=== PATIENT | male | born 1950 | race African-American/Black ===

== ENCOUNTER 2025-05-04 11:42 | Emergency (ER) | payer MEDICARE, SELFPAY ==
[2025-05-04 11:44] VITALS: BP 167/62
--- NOTE | 2025-05-04 12:50 | ED.GENMED ---
ED Provider Triage
<Jarred Alcaraz MD, Resident - Last Filed: 05/04/25 14:18>
-
Patient seen by provider in Triage?: Seen in Triage
History of Present Illness
<Jarred Alcaraz MD, Resident - Last Filed: 05/04/25 14:18>
General
Chief Complaint: Fall
Source: patient
Exam Limitations: none
Time Seen by Provider: 05/04/25 12:10
History of Present Illness
History of Present Illness:
Patient is a 75-year-old male with a significant medical history for dialysis from [place] who is here in [facility]. Around 2 to 3 hours ago, he tripped on a tree root near his camping site and fell on his left side. Associated
with moderate to severe pain of his left wrist and left forearm. There is weakness and movement of his left forearm. No numbness no tingling of the affected extremities. No active bleeding. No headache, visual changes fever, chills, nausea,
vomiting, diarrhea, abdominal pain, focal neurological deficits. He is not on any blood thinners, he has had 2 kidney transplants.
Past History
<Jarred Alcaraz MD, Resident - Last Filed: 05/04/25 14:18>
Past History
ED Past Medical History: Other (HTN, Dialysis)
ED Past Surgical History: Other (Kidney transplant bilateral )
Social History
Tobacco: Other (Marijuana)
Alcohol: None
Drug: None
Personal:
Employment: Retired
Review of Systems
<Jarred Alcaraz MD, Resident - Last Filed: 05/04/25 14:18>
Review of Systems
Allergies reviewed?: Yes
All Other Systems: ROS reviewed and negative except as documented in HPI and ROS
Phy Exam
<Jarred Alcaraz MD, Resident - Last Filed: 05/04/25 14:18>
General Physical Exam
General Presentation: well appearing
General Skin: warm
General Habitus: normal
General Mental: alert
Cardiovascular Exam
Cardiovascular Exam: regular rate/rhythm and no edema
Pulmonary Exam
Pulmonary Exam: lungs clear and no respiratory distress
Neurological Exam
Neurological Exam: alert and oriented x3
Musculoskeletal Exam
Musculoskeletal Exam: other (swelling of the left dorsal surface of hand, the medial and lateral aspect of wrist, and the left medial region of elbow. No active bleeding or lacerations. Decreased ROM all planes of left elbow w/ point tenderness of
the medial epicondyle. ROM normal left wrist. sensation intact b/l. pulses 2+ )
Course
<Jarred Alcaraz MD, Resident - Last Filed: 05/04/25 14:18>
Orders/Labs/Results
Orders:
Orders
05/04/25 12:44
CR Forearm - Left 2 View Urgent
Comment:
Reason For Exam: severe pain
CR Hand - Left Min 3 Views Urgent
Comment:
Reason For Exam: severe pain
05/04/25 12:54
Acetaminophen [Tylenol] 650 mg PO NOW STA
05/04/25 14:10
Sling Left-Treatment ONCE
Comment: volar left sling
Splints/Slings/Crut- Treatment ONCE
Sling to: Left Arm
Location: Left
Type of Splint: Volar
Vital Signs
Initial and Last Documented VS:
Initial Vital Signs
Temp Pulse Resp BP Pulse Ox
97.6 F 58 18 167/62 95
05/04/25 11:44 05/04/25 11:44 05/04/25 11:44 05/04/25 11:44 05/04/25 11:44
Last Documented Vital Signs
Temp Pulse Resp BP Pulse Ox
97.6 F 58 18 167/62 95
05/04/25 11:44 05/04/25 11:44 05/04/25 11:44 05/04/25 11:44 05/04/25 12:52
<Steven Bradley MD - Last Filed: 05/04/25 14:08>
Orders/Labs/Results
Orders:
Orders
05/04/25 12:44
CR Forearm - Left 2 View Urgent
Comment:
Reason For Exam: severe pain
CR Hand - Left Min 3 Views Urgent
Comment:
Reason For Exam: severe pain
05/04/25 12:54
Acetaminophen [Tylenol] 650 mg PO NOW STA
05/04/25 14:10
Sling Left-Treatment ONCE
Comment: volar left sling
Splints/Slings/Crut- Treatment ONCE
Sling to: Left Arm
Location: Left
Type of Splint: Volar
Vital Signs
Initial and Last Documented VS:
Initial Vital Signs
Temp Pulse Resp BP Pulse Ox
97.6 F 58 18 167/62 95
05/04/25 11:44 05/04/25 11:44 05/04/25 11:44 05/04/25 11:44 05/04/25 11:44
Last Documented Vital Signs
Temp Pulse Resp BP Pulse Ox
97.6 F 58 18 167/62 95
05/04/25 11:44 05/04/25 11:44 05/04/25 11:44 05/04/25 11:44 05/04/25 12:52
<Jarred Alcaraz MD, Resident - Last Filed: 05/04/25 14:18>
MDM/Problems Addressed
Differential Diagnosis Includes:
wrist fracture, wrist soft tissue swelling, left forearm soft tissue swelling, medial epicondyle fracture, lateral epicondyle fracture
MDM/Problems Addressed:
- Xrays of the left wrist and left forearm ordered show fracture of the left distal radius and left styloid ulnar process
- Given tylenol 650 for pain once
Discharge patient with splint, volar sling, and f/u ortho within 5 days. Advised patient to buy OTC pain medication like tylenol as his pharmacy is in [place].
<Jarred Alcaraz MD, Resident - Last Filed: 05/04/25 14:18>
*Pulse Oximetry
SaO2: 95
Oxygen Mode of Delivery: Room air
Patient hypoxic: no
*Critical Care Note
Total Time (30-74mins, 75-104mins- exclusive of procedures): Not Applicable
ED Attending Note
<Jarred Alcaraz MD, Resident - Last Filed: 05/04/25 14:18>
-
Portions of this chart may have been created with voice recognition software.� Occasional wrong word or��sound alike� substitutions may have occurred due to the inherent limitations of voice recognition software.
<Steven Bradley MD - Last Filed: 05/04/25 14:08>
ED Attending Note
Patient seen and examined by attending physician: Yes
I performed a history and physical exam of patient and discussed management with resident, I reviewed resident's note and agree with documented findings and plan of care.: Yes
ED Attending Note:
75-year-old male tripped and fell landing on his left arm. No other injury. Patient is a dialysis patient. No head injury no neck pain no chest pain abdominal pain. No lower extremity symptoms. Only complaining of left elbow forearm and left
hand pain.
TRAUMA EXAM:
VITAL SIGNS: Vital signs reviewed, cooperative
DISTRESS: No active disease
EYES: Pupils reactive, no orbital trauma
NOSE: No deformity or epistaxis
FACE AND SCALP: No scalp or facial trauma
NECK: Supple nontender
RESPIRATORY: No distress, breath sounds normal, no tender chest wall
CARDIAC: No murmur, pulses equal and strong
ABDOMEN: Soft nontender bowel sounds normal
SKIN: Skin intact no bleeding, color normal
EXTREMITIES: Left arm with a proximal shunt with good thrill. No left shoulder clavicle or humerus tenderness swelling or pain. No open wounds. Tenderness to the left medial elbow and pain with elbow rotation. No proximal forearm tenderness or
swelling. Tenderness and swelling of the wrist but more to the dorsal hand
NEUROLOGICAL: Alert, oriented, no motor deficits
PSYCH: Mood affect normal
Impression is localized injury to the left arm mostly left elbow medially left wrist and hand. X-rays pending. No other signs of significant trauma
Distal radius fracture. Neurovascular intact. Ulnar chip. Splint and orthopedic follow-up
Discharge Plan
Departure
Patient Disposition: Home (Routine Discharge)
Date of Disposition: 05/04/25
Time of Disposition: 14:04
Patient with high blood pressure during this ER visit?: Yes
Condition: Fair
Discharge Problem:
Fracture of distal end of left radius, Fracture of styloid process of left ulna
Instructions: Forearm and Wrist Fractures ED
Referrals:
UNKNOWN - PT DOES,NOT KNOW [Family Provider]
Activity Restrictions/Additional Instructions:
Take OTC pain medication as instructed. Rest the affected extremity as instructed. Follow up with orthopedics within 3 days.
Thank you for visiting the Emergency Department at [facility].
1. Please schedule a follow up appointment as directed. Call first thing tomorrow morning to make an appointment.
2. If indicated, please take your medications as instructed and indicated on discharge paperwork.
3. If any of your symptoms do not improve, or persist, or become more severe within 6-12 hours, please return to the emergency department for further care.
4. Please return to the emergency department if you develop a headache, neck pain/stiffness, fever greater than 100.4F, chest pain, shortness of breath, persistent nausea, vomiting, slurred speech, difficulty walking, numbness/tingling, weakness,
signs of infection or any other symptoms that are worrisome to you.
Please call [phone] if you have any questions.
Interventions
Interventions:
*Risk Screen - Suicide Last Done: 05/04/25 11:44
*General Assessment Last Done: 05/04/25 11:44
*Neglect/Abuse Screening Last Done: 05/04/25 13:31
*ED- Fall Risk Assessment Last Done: 05/04/25 11:50
*ED COVID-19 Vaccine History Last Done: 05/04/25 11:50
*ED Influenza Vaccine History Last Done: 05/04/25 11:50
ED-Musculoskeletal Assessment Last Done: 05/04/25 11:50
ED- Neurological Assessment Last Done: 05/04/25 11:50
ED-Skin Assessment Last Done: 05/04/25 11:50
Discharge Date and Time
Print Language: ETHIOPIAN
[2025-05-04] MEDS: TYLENOL 650 MG PO (13:25)
== END 2025-05-04 14:40 | disposition home or self-care (01) ==
LOC: EMR 11:42
PROVIDERS: EMERGENCY PHYSICIAN Emergency Medicine
DX: S52.502A Unspecified fracture of the lower end of left radius, initial encounter for closed fracture (principal); S52.612A Displaced fracture of left ulna styloid process, initial encounter for closed fracture; I10 Essential (primary) hypertension; Z94.0 Kidney transplant status; Z99.2 Dependence on renal dialysis; W01.0XXA Fall on same level from slipping, tripping and stumbling without subsequent striking against object, initial encounter; Y93.01 Activity, walking, marching and hiking; Y92.833 Campsite as the place of occurrence of the external cause
CPT/HCPCS: 99283; 73090; 73130